=== PATIENT | female | born 1990 | race Caucasian/White ===

== ENCOUNTER 2016-08-18 22:00 | Observation (INO) | payer OTHER ==
--- NOTE | ~2016-08-18 | DS ---
Discharge Summary [facility] [place] [address] [place]. [address] NAME: JUAN CARLOS OLMEDO : 86 STATUS : DIS Stephen PAT#: [id number] AGE: 26 ADM/REG DATE : 08/19/16 MR#: [id number] REPORT SERV DATE: 08/21/16 DICTATED BY: PHOENIX FINCH DATE: 08/20/16 REPORT STATUS : Draft TRANSCRIBED BY: MODL DATE: 08/20/16 ADMISSION DATE: 08/19/2016 DISCHARGE DATE: 08/20/2016 CONSULTANTS: Dr. Mira Alcala, Neurology. DISCHARGE DIAGNOSES: 1. Spells of possible narcolepsy or sleep attack. 2. Kottaqe-Cckvc-Hmgec disease with peripheral neuropathy. 3. Chronic low back pain. 4. Suspected restless legs syndrome. 5. Chronic insomnia. 6. Generalized anxiety. 7. B12 deficiency. 8. Vitamin D deficiency. 9. Mildly elevated TSH. HISTORY: This patient has been having about a year or more of episodes thought to be restless legs. She also has been having difficulty with sleep. She also has daytime excess sleepiness and at times just almost drops to sleep suddenly. She describes these episodes as feeling dizzy, spaced out, foggy thinking, and then just falls asleep. She has been waiting for an appointment with Neurology, but because she had these spells, she came to the emergency room at [facility] and was referred to us for inpatient care. IMAGING: Included CT scan of the brain without contrast that was reported as normal. She also had MRI of the brain without contrast showing retention cysts in the maxillary sinuses, otherwise normal. MRA of the head was normal. MRA of the neck showed normal findings. EEG per Neurology with no seizure-like activity. Echocardiogram on 08/19/2016 showed left ventricular ejection fraction 55% to 60%. Qofwn-ns-mgmvnhvz loculated posterior effusion without tamponade. Negative bubble study. EKG, cardiac enzymes, normal. LABORATORY DATA: Revealed TSH mildly elevated at 5.45, B12 level that was low normal at 268, vitamin D that was low at 9. Chemistries normal except for albumin 2.8. Negative serum test. CBC unremarkable. CRP mildly elevated at 12.2. She is ambulatory. She has no evidence of orthostatic hypotension. She is cleared to go home and follow up with her PCP. Neurology is recommending that she come off the Requip. They think it may be aggravating her problem. They are recommending that she not use any xnrt-hoz-huiekjv sleep medicines and that she try gabapentin at bedtime. They are referring her to the [facility] for Neurology opinion and for possible sleep study to look for narcolepsy or other sleep problems. We are asking the PCP to follow up on her B12, vitamin D, and her TSH. Discharge Summary [address] [place]. [address] NAME: JUAN CARLOS OLMEDO : 86 STATUS : DIS Stephen PAT#: [id number] AGE: 26 ADM/REG DATE : 08/19/16 MR#: [id number] REPORT SERV DATE: 08/21/16 DICTATED BY: PHOENIX FINCH DATE: 08/20/16 REPORT STATUS : Draft TRANSCRIBED BY: JAQUELIN DATE: 08/20/16 DISCHARGE MEDICATIONS: Vitamin D 50,000 units every week, gabapentin 300 mg at bedtime, Inderal 20 mg daily, Tylenol 650 q.6 hours p.r.n. pain or fever, Valium 2 mg daily p.r.n. panic attacks which she states she takes rarely, Prosom 2 mg at bedtime p.r.n., oxycodone 20 mg q.6 hours p.r.n. chronic pain which is something she has been getting from her PCP, Tri- Sprintec one tablet daily, Motrin she takes over the counter p.r.n. headaches. FOLLOWUP: Is to follow up with her PCP, Dr. Vinnie Dempsey, and with [facility]. BESSIE/JAQUELIN Phoenix Finch M.D. / [id number] CC: Ping Linares M.D. [facility]
--- NOTE | ~2016-08-18 | HP ---
History And Physical [place] [id number] [facility] [place]. [address] NAME: JUAN CARLOS OLMEDO : 86 STATUS : ADM IN PAT#: [id number] AGE: 26 ADM/REG DATE : 08/19/16 MR#: [id number] REPORT SERV DATE: 08/19/16 DICTATED BY: ZOILA TRUJILLO DATE: 08/19/16 REPORT STATUS : Draft TRANSCRIBED BY: MODL DATE: 08/19/16 DATE OF ADMISSION: 08/19/2016 CHIEF COMPLAINT: A 26-year-old female presenting with recurrent syncopal episodes. HISTORY OF PRESENTING ILLNESS: The patient's history was obtained through careful interview with the patient and sister, coupled with review of [facility] medical records. The patient has longstanding Gttaylg-Foiud-Wpzar condition since childhood. She has had progressive neuropathy footdrop, hands and foot disability with fine motor skill deterioration, worsening tremors, and she tends to have a variation of this condition that affects her back just as severely as her extremities leading to chronic back pain and disability. It is in this context that over the last few months, the patient has had spells of dysarthria, confusion, foggy headedness, and then overt syncope at times. It seems that she develops these symptoms as a precursor to actually passing out and when she passes out, it is like she is sleeping very hard. At first, she becomes completely unresponsive and will often sleep for an hour or more at a time. She has a slight "shaking" during some of these spells, but no overt convulsions or seizures. She had no recent headaches. She describes chronic back pain up to 7/10 severity, for which she is on chronic pain management. She has chronic palpitations. No chest pain. No shortness of breath. No fevers or chills. No nausea or vomiting. No hemiparesis. No dysphagia. No lightheadedness. No vertigo. No double vision. REVIEW OF SYSTEMS: Otherwise, 14-point review of systems was obtained and is negative. PAST MEDICAL HISTORY: 1. Nephrolithiasis with hydronephrosis, seen by Dr. Nathaniel Galeas. 2. Urinary tract infection. 3. Anxiety. 4. Chronic back pain. 5. Skfuuwm-Lokvd-Xmzvg neuropathy. PAST SURGICAL HISTORY: Denies any. ALLERGIES: KEFLEX, AMBIEN, AND SPRING. History And Physical [address] [place]. [address] NAME: JUAN CARLOS OLMEDO : 86 STATUS : ADM IN PAT#: [id number] AGE: 26 ADM/REG DATE : 08/19/16 MR#: [id number] REPORT SERV DATE: 08/19/16 DICTATED BY: ZOILA TRUJILLO DATE: 08/19/16 REPORT STATUS : Draft TRANSCRIBED BY: JAQUELIN DATE: 08/19/16 SOCIAL HISTORY: Never been a smoker. Drinks rare alcohol. Is . Lives in [place], [place]. Have a 6-year-old son. She is unemployed, filing for disability. FAMILY HISTORY: Father with lupus and rheumatoid arthritis. Grandmother with breast and lung cancer. A strong family history of heart disease and diabetes. CURRENT MEDICATIONS: Include Valium 2 mg as needed, ProSom 2 mg p.o. q.h.s., estradiol, Roxicodone 20 mg p.o. q.6 hours p.r.n., Inderal 20 mg p.o. daily, Requip 2 mg p.o. q.h.s. PHYSICAL EXAMINATION: VITAL SIGNS: Temperature 99.1, pulse 69, blood pressure 155/80, respiratory rate 22, O2 saturation 100% on room air. Orthostatics negative. GENERAL: A pleasant cooperative female, in no evidence of acute distress at this time. HEENT: Pupils equal, round, and reactive to light. No conjunctival pallor. No scleral icterus. Nares are patent. Oropharynx is clear of obstruction. Moist mucous membranes. NEUROLOGICAL: Cranial nerves 2 through 12 are intact and symmetrical. The patient has 5/5 strength on my exam in upper and lower extremities that are symmetrical. NECK: Trachea midline. No thyromegaly. LYMPH: No cervical lymphadenopathy. No supraclavicular lymphadenopathy. RESPIRATORY: Clear to auscultation at bases. No wheezes, rales, or rhonchi. Normal respiratory effort. CARDIOVASCULAR: Regular rate and rhythm. No murmurs, rubs, or gallops. No extremity edema is appreciated. ABDOMEN: Soft, nontender, nondistended. Normal bowel sounds auscultated throughout. No organomegaly. DERMATOLOGICAL: Warm and dry. EXTREMITIES: No pallor, no cyanosis. PSYCHIATRIC: Normal affect. Good mood. Alert and oriented x3. LABORATORY DATA: White blood cell count 8.4, hemoglobin 13. Sodium 143, potassium 4.2, chloride 106, bicarb 27, BUN 12, creatinine 0.64, glucose 88. Serum test negative. Albumin 2.9. Liver enzymes within normal limits. Urinalysis negative for infection. STUDIES: 1. CT scan of the brain shows no acute intracranial process. 2. EKG by my own evaluation shows no acute abnormality. Sinus rhythm. ASSESSMENT AND PLAN: 1. Recurrent syncope. Check EEG. Check MRI of the brain. Obtain Neurology consult. 2. Rignzhl-Hnbzl-Hzdpl. Progressive disability. [facility]/MOD History And Physical [address] [address] NAME: JUAN CARLOS OLMEDO : 86 STATUS : ADM IN [facility]#: [id number] AGE: 26 ADM/REG DATE : 08/19/16 MR#: [id number] REPORT SERV DATE: 08/19/16 DICTATED BY: ZOILA TRUJILLO DATE: 08/19/16 REPORT STATUS : Draft TRANSCRIBED BY: JAQUELIN DATE: 08/19/16 Zoila Trujillo M.D. / [id number] CC: Ping Dean M.D.
--- NOTE | ~2016-08-18 | EEG ---
Electroencephalogram [place] [address] [place]. [address] NAME: JUAN CARLOS OLMEDO : 86 STATUS : DIS Stephen PAT#: [id number] AGE: 26 ADM/REG DATE : 08/19/16 MR#: [id number] REPORT SERV DATE: 08/20/16 DICTATED BY: KALI QUIJANO DATE: 08/20/16 REPORT STATUS : Draft TRANSCRIBED BY: MODL DATE: 08/20/16 ELECTROENCEPHALOGRAPHY REPORT EEG NUMBER: [id number]. REASON FOR EEG: Syncope. 23 surface electrodes, 10-20 international placement was used. Photic stimulation was performed. Video monitoring was utilized. Hyperventilation was performed during this study. The background activity consisted of moderate voltage, relatively well organized 9-10 cycles per second located in the posterior head regions. This off-range activity attenuated well with the eye opening maneuvers. No significant asymmetry of cerebral activity was present. The patient was described as awake and drowsy. Brief periods of light sleep were recorded. No significant asymmetry of cerebral activity was present. No paroxysmal epileptiform activity was seen. Photic stimulation produced a posterior-occipital driving response. Hyperventilation produced increase of bilaterally synchronous high voltage 6-7 hertz activity. No paroxysmal epileptiform activity was seen during these periods. The patient's awake overnight monitor showed regular sinus rhythm at rate of approximately 72 beats per minute. No significant abnormalities were noted on the awake overnight monitor. IMPRESSION: THIS EEG IS WITHIN NORMAL RANGE. INCREASE OF SLOWER BILATERALLY SYNCHRONOUS ACTIVITY POSTERIORLY IS NOT UNUSUAL FOLLOWING THE HYPERVENTILATION IN YOUNG PATIENTS. NO SIGNIFICANT CARDIAC ABNORMALITIES WERE NOTED AT THAT TIME DURING OR FOLLOWING HYPERVENTILATION. CLINICAL CORRELATION IS RECOMMENDED. GEORGE/JAQUELIN Kali Quijano MD / [id number] CC: Ping Linares M.D.
--- NOTE | ~2016-08-18 | CN ---
Consultation Report [facility] [address] [place]. [address] NAME: JUAN CARLOS OLMEDO : 86 STATUS : ADM IN PAT#: [id number] AGE: 26 ADM/REG DATE : 08/19/16 MR#: [id number] REPORT SERV DATE: 08/19/16 DICTATED BY: MIRA GRIFFITH DATE: 08/19/16 REPORT STATUS : Draft TRANSCRIBED BY: MODTarsha DATE: 08/19/16 NEUROLOGY CONSULTATION DATE OF CONSULTATION: 08/19/2016 REASON FOR CONSULTATION: Syncope. HOSPITALIST: Lauren Nash M.D. HISTORY OF PRESENT ILLNESS: The patient is a 26-year-old female, who has a longstanding history of Iqydzsg-Hokzk-Dysok disease. She also has a history of restless legs syndrome at about a year to year and a half ago and was placed on Requip to help manage her symptoms. Approximately a year ago, the patient started having excessive daytime drowsiness. She states that she would fall asleep sitting up in a chair or sitting at the couch. She would not have any warning or feel drowsy, but suddenly would find herself sleeping in the middle of the day. Since she began having sudden drowsiness, she quit driving due to safety reasons. Her "episodes of sleepiness" seemed to worsen over time. She has never had an outpatient sleep study done, and she denies any excessive snoring at nighttime. Her , who is with her, states that she will fall asleep suddenly at various times during the day. He states that at times, she will snore during the night. He has never seen her have any convulsions nor has she "passed out" for excessive periods of time. PAST MEDICAL HISTORY: Nephrolithiasis, neuropathy, urinary tract infections, anxiety, chronic back pain, Bkzzdhg-Fwwts-Jjsnp neuropathy. PAST SURGICAL HISTORY: None. HOME MEDICATION LIST: Includes Valium 2 mg p.r.n. spasm, Prosom 2 mg at bedtime, Tri- Sprintec tablet one daily, Roxicodone 20 mg q.6 hours p.r.n. severe back pain, Inderal 20 mg daily, and Requip 2 mg at bedtime. ALLERGIES: KEFLEX, AMBIEN, AND SPRING. SOCIAL HISTORY: The patient is . She has one son. She is unemployed. She is on disability. She does not smoke, drink alcohol, or use recreational drugs. FAMILY HISTORY: The patient's mother is alive, she has Elcrpon-Xofau-Voxlv disease, rheumatoid arthritis and osteoarthritis. Her father is alive, he suffers from lupus and rheumatoid arthritis. She has one sister, who has ADHD. REVIEW OF SYSTEMS: For pertinent positives, please refer to HPI. PHYSICAL EXAMINATION: Consultation Report [address] [place]. [address] NAME: JUAN CARLOS OLMEDO : 86 STATUS : ADM IN PAT#: [id number] AGE: 26 ADM/REG DATE : 08/19/16 MR#: [id number] REPORT SERV DATE: 08/19/16 DICTATED BY: MIRA GRIFFITH DATE: 08/19/16 REPORT STATUS : Draft TRANSCRIBED BY: JAQUELIN DATE: 08/19/16 VITAL SIGNS: The patient is a 26-year-old, who stands 5 feet tall and weighs 160 pounds. She is afebrile. Heart rate is 84, respiratory rate 16, O2 saturations on room air 96%, blood pressure 135/63. NEURO: The patient is alert. She is oriented x4. Pleasant. Communicates appropriately. Speech is clear. Language fluent. Pupils are 4 mm, PERRLA. Cranial nerves II through XII are intact. Vision via confrontation is full in both fitzgerald. Fppypa-ky-behu no ataxia. No pronator drift. Upper extremity strength is a 4/5 bilaterally. No sensory deficit. Upper DTRs are 1+ bilaterally at best. Lower extremity strength is a 5/5 bilaterally. Unable to elicit patellar reflexes. Achilles 1+ bilaterally. Downgoing toes. The patient can get out of the bed. She can ambulate. No ataxia. Romberg is positive. NECK: No carotid bruits, JVD, or thyromegaly. CHEST: Lung sounds clear. CARDIAC: Regular rate and rhythm. LABORATORY DATA: CBC is normal. BMP normal. CT of the brain, no acute changes. UA, negative for UTI. ASSESSMENT/PLAN: 1. Near syncopal and syncopal episodes, etiology unknown. The patient will undergo an MRI of the brain without gadolinium and an MRA of the head and neck with gadolinium. An EEG will be done. She will also have an echocardiogram with bubble study, and additional lab work will be drawn. 2. Possible narcolepsy or even sudden sleep attacks. The patient is on Requip, and her dose will quickly be tapered and discontinued. Her efft-xap-oanjujf sleep medicine will also be discontinued. She was cautioned not to drive until her symptomatology is resolved. She will be started on Neurontin 100 mg p.o. q.h.s. for restless legs syndrome. 3. Sccyyss-Qxwyj-Mrykk disease. Her symptoms will be managed. Thank you again for including us in consultation. We will continue to follow with you. CHASITY/JAQUELIN Mira Griffith [facility] / [id number] CC: Ping Garland M.D.
[2016-08-19 00:57] LABS: BASOPHILS 0.4 %; BASOPHILS ABSOLUTE 0.03 10/3/uL (0.0-0.16); EOSINOPHILS 1.4 %; EOSINOPHILS ABSOLUTE 0.12 10/3/uL (0.0-0.53); ER CBC TAT 0 Hrs 10 Mins; HEMATOCRIT 37.9 % (36.0-48.0); HEMOGLOBIN 12.6 g/dL (12.0-16.0); IMMATURE GRANULOCYTES 0.2 %; IMMATURE GRANULOCYTES ABSOLUTE 0.02 10/3/uL (0.0-0.11); LYMPHOCYTES 36.4 %; LYMPHOCYTES ABSOLUTE 3.06 10/3/uL (0.67-4.30); MANUAL DIFF NO %; MEAN CORPUS HGB CONC 33.2 g/dL (32.0-36.0); MEAN CORPUSCULAR HEMOGLOB 29.5 pg (26.0-34.0); MEAN CORPUSCULAR VOLUME 88.8 fL (80-100); MEAN PLATELET VOLUME 9.8 fL (9.2-13.0); MONOCYTES 6.2 %; MONOCYTES ABSOLUTE 0.52 10/3/uL (0.21-1.20); NEUTROPHILS 55.4 %; NEUTROPHILS ABSOLUTE 4.65 10/3/uL (2.02-8.40); PLATELET COUNT 251 10/3/uL (150-400); RBC DISTRIBUTION WIDTH 12.7 % (12.0-16.0); RED CELL COUNT 4.27 10/6/uL (4.0-5.6); WHITE BLOOD CELLS 8.4 10/3/uL (4.5-10.5)
[2016-08-19 01:02] LABS: ASCORBIC ACID (UR NOT ORDER) NEG (NEG); BILIRUBIN, URINE NEGATIVE (NEG); ER URINALYSIS TAT 0 Hrs 15 Mins; KETONE, URINE NEGATIVE (NEG); LEUKOCYTE ESTERASE(NOT OR NEG (NEG); NITRITE (URINE) NEG (NEG); WBC (NOT ORDERED) (RFLEX) 3 (0-5)
[2016-08-19 01:13] LABS: A/G RATIO 0.7 (0.7-1.9); ALBUMIN 2.9 G/DL (3.5-5.0); ALKALINE PHOSPHATASE 63 U/L (45-117); BUN (BLOOD UREA NITROGEN) 12 MG/DL (6-23); CALCIUM, SERUM 8.6 MG/DL (8.5-10.4); CHLORIDE, SERUM 106 MMOL/L (96-112); CO2 (CARBON DIOXIDE) 27 MMOL/L (24-34); CREATININE 0.64 MG/DL (0.55-1.02); GFR AFRICAN AMERICAN 141 ML/MIN (>=60); GFR NON AFRICAN AMERICAN 121 ML/MIN (>=60); GLOBULIN 3.9 G/DL (2.5-4.1); GLUCOSE, SERUM 88 MG/DL (60-99); POTASSIUM, SERUM 4.2 MMOL/L (3.5-5.3); SGOT(AST) 10 U/L (5-40); SGPT(ALT) 19 U/L (5-65); SODIUM, SERUM 143 MMOL/L (135-148); TOTAL BILIRUBIN 0.2 MG/DL (0-1.2); TOTAL PROTEIN 6.8 G/DL (6.0-8.5)
[2016-08-19] MEDS ORDERED: TRI-SPRINTEC PO (03:35)
[2016-08-19] MEDS ORDERED: I20 PO (03:35)
[2016-08-19] MEDS ORDERED: OXYCOD PO (03:38)
[2016-08-19] MEDS ORDERED: V2 PO (03:39)
[2016-08-19] MEDS ORDERED: PROSOM 2 MG TAB2 MG PO (03:39)
[2016-08-19] MEDS ORDERED: REQUIP2 PO (03:39)
[2016-08-19] MEDS ORDERED: ZANAFLEX2 MG PO (08:01)
[2016-08-19] MEDS ORDERED: IBU400 PO (08:01)
[2016-08-19 10:37] LABS: AMPHETAMINES (NOT ORD) NEG (NEG); BARBITURATES (NOT ORDERED NEG (NEG); BENZODIAZEPINES (NOT ORD) NEG (NEG); CANNABINOIDS (THC) NEG (NEG); COCAINE (NOT ORDERED) NEG (NEG); OPIATES NEG (NEG); PHENCYCLIDINE(PCP) NEG (NEG); TRICYCLICS NEG (NEG)
[2016-08-19 13:17] LABS: BASOPHILS 0.4 %; BASOPHILS ABSOLUTE 0.03 10/3/uL (0.0-0.16); EOSINOPHILS 1.5 %; EOSINOPHILS ABSOLUTE 0.12 10/3/uL (0.0-0.53); HEMATOCRIT 38.3 % (36.0-48.0); HEMOGLOBIN 12.8 g/dL (12.0-16.0); IMMATURE GRANULOCYTES 0.1 %; IMMATURE GRANULOCYTES ABSOLUTE 0.01 10/3/uL (0.0-0.11); LYMPHOCYTES 48.5 %; LYMPHOCYTES ABSOLUTE 3.92 10/3/uL (0.67-4.30); MEAN CORPUS HGB CONC 33.4 g/dL (32.0-36.0); MEAN CORPUSCULAR HEMOGLOB 29.2 pg (26.0-34.0); MEAN CORPUSCULAR VOLUME 87.4 fL (80-100); MEAN PLATELET VOLUME 9.6 fL (9.2-13.0); MONOCYTES 7.5 %; MONOCYTES ABSOLUTE 0.61 10/3/uL (0.21-1.20); NEUTROPHILS ABSOLUTE 3.39 10/3/uL (2.02-8.40); PLATELET COUNT 275 10/3/uL (150-400); RBC DISTRIBUTION WIDTH 12.7 % (12.0-16.0); RED CELL COUNT 4.38 10/6/uL (4.0-5.6); WHITE BLOOD CELLS 8.1 10/3/uL (4.5-10.5)
[2016-08-19 13:21] LABS: PARTIAL THROMBO TIME 30.9 SEC (22.5-37.2); PROTIME (NOT ORD) 13.4 SEC (12.0-14.5)
[2016-08-19 13:22] LABS: MANUAL DIFF NO %
[2016-08-19 13:51] LABS: A/G RATIO 0.7 (0.7-1.9); ALBUMIN 2.8 G/DL (3.5-5.0); ALKALINE PHOSPHATASE 63 U/L (45-117); BUN (BLOOD UREA NITROGEN) 10 MG/DL (6-23); C-REACTIVE PROTEIN 12.2 MG/L (<8.0); CALCIUM, SERUM 8.5 MG/DL (8.5-10.4); CHLORIDE, SERUM 109 MMOL/L (96-112); CHOL/HDL RATIO(NOT ORDER) 2.4 (0-5); CHOLESTEROL 167 MG/DL (< 200); CO2 (CARBON DIOXIDE) 25 MMOL/L (24-34); CREATININE 0.63 MG/DL (0.55-1.02); FREE T4 0.96 NG/DL (0.76-1.46); GFR AFRICAN AMERICAN 141 ML/MIN (>=60); GFR NON AFRICAN AMERICAN 122 ML/MIN (>=60); GLUCOSE, SERUM 105 MG/DL (60-99); HDL CHOLESTEROL 71 MG/DL (> 49); LDL CHOLESTEROL 65 MG/DL (< 130); NON-HDL CHOLESTEROL 96 MG/DL (< 160); POTASSIUM, SERUM 3.9 MMOL/L (3.5-5.3); SGOT(AST) 8 U/L (5-40); SGPT(ALT) 15 U/L (5-65); SODIUM, SERUM 143 MMOL/L (135-148); TOTAL BILIRUBIN 0.2 MG/DL (0-1.2); TOTAL PROTEIN 6.8 G/DL (6.0-8.5); TRIGLYCERIDE 157 MG/DL (< 150)
[2016-08-19 14:27] LABS: SED RATE 15 MM/HR (0-20)
[2016-08-20] MEDS ORDERED: VITD PO (15:58)
[2016-08-20] MEDS ORDERED: NEUR300 PO (15:59)
[2016-08-20] MEDS ORDERED: ACETSUP650 PR (16:01)
[2016-08-20] MEDS ORDERED: T PO (16:02)
== END 2016-08-20 17:10 | disposition home or self-care (01) ==
LOC: ER 22:00 → ER/OF 08-19 03:08 → 1SO 08-19 06:38
PROVIDERS: Hospitalist; Specialist
DX: R55 Syncope and collapse (principal); G60.0 Hereditary motor and sensory neuropathy; F41.9 Anxiety disorder, unspecified; N39.0 Urinary tract infection, site not specified; G89.29 Other chronic pain; M54.5 Low back pain; G47.00 Insomnia, unspecified; E53.8 Deficiency of other specified B group vitamins; Z87.442 Personal history of urinary calculi; Z82.61 Family history of arthritis; Z80.1 Family history of malignant neoplasm of trachea, bronchus and lung; Z82.49 Family history of ischemic heart disease and other diseases of the circulatory system; Z88.5 Allergy status to narcotic agent; Z88.8 Allergy status to other drugs, medicaments and biological substances; Z79.899 Other long term (current) drug therapy
CPT/HCPCS: 70450; 70544; 70548; 70553; 80053; 80061; 80305; 81001; 82140; 82306; 82533; 82607; 82746; 83036; 83735; 84439; 84443; 84703; 85025; 85610; 85652; 85730; 86140; 93005; 93306; 95816; 95819; 96372; 99285; A9270-GY; A9577; G0378